=== PATIENT | male | born 1955 | race Caucasian/White ===

== ENCOUNTER 2019-06-20 18:48 | Emergency (ER) | payer OTHER ==
[~2019-06-20] VITALS: Ht 190.5 cm; Wt 106.6 kg
[~2019-06-20 18:48] MED LIST: FENTANYL PA25 MCG/HR TRANSDERM; IBUPROFEN 800800 M1 PO; INSULIN; LANTUSSOLASTAR SUBQ; NORCO 10-325 T1 EACH PO; NORCO 5-325 TA1 EACH PO; NOVOLOG100 UNIT/1 SUBQ; PENICILLIN V P500 MG PO; PENICILLIN VK250 MG PO
[2019-06-20] MEDS ORDERED: NOVOLIN 70100 UNIT/5 SUBQ (19:04)
[2019-06-20] MEDS ORDERED: REMERON30 M1 PO (19:05)
[2019-06-20] MEDS ORDERED: LYRICA150 MG PO (19:05)
[2019-06-20] MEDS ORDERED: IBUPROFEN 800800 M1 PO (20:30)
[2019-06-20] MEDS ORDERED: KEFLEX500 M1 PO (20:30)
[2019-06-20 21:35] VITALS: BP 167/72
== END 2019-06-20 21:36 | disposition home or self-care (01) ==
LOC: M.ERS 18:48
DX: L72.3 Sebaceous cyst (principal); E11.9 Type 2 diabetes mellitus without complications; F17.210 Nicotine dependence, cigarettes, uncomplicated; Z79.4 Long term (current) use of insulin; Z88.2 Allergy status to sulfonamides

== ENCOUNTER 2021-07-23 15:12 | Emergency (ER) | payer OTHER ==
[~2021-07-23] VITALS: Ht 188 cm; Wt 106.6 kg
[~2021-07-23 15:12] MED LIST changes: +KEFLEX500 M1 PO; +LYRICA150 MG PO; +NOVOLIN 70100 UNIT/5 SUBQ; +REMERON30 M1 PO
[2021-07-23 15:17] VITALS: BP 186/88
[2021-07-23] MEDS ORDERED: HYDROCODON-ACE1 EAC7 PO (15:29)
[2021-07-23] MEDS ORDERED: AMOXICILLIN 50500 MG PO (15:29)
== END 2021-07-23 15:41 | disposition home or self-care (01) ==
LOC: M.ERS 15:12
DX: K02.9 Dental caries, unspecified (principal); E11.9 Type 2 diabetes mellitus without complications; Z79.899 Other long term (current) drug therapy; Z88.2 Allergy status to sulfonamides